=== PATIENT | female | born 1965 | race Caucasian/White ===

== ENCOUNTER 2025-01-08 07:30 | Day surgery (SDC) | payer OTHER ==
[~2025-01-08] VITALS: Ht 167.6 cm; Wt 89.4 kg
[~2025-01-08 07:30] MED LIST: BIOTIN10 MG PO; CINNAMON500 MG PO; ESTRADIOL0.5 MG PO; FUROSEMIDE20 MG PO; IBLOOD GLUCOSE TEST STRIP 1 EA TEST VI PRN; LACTATED RINGER'S 1,000 ML IV SCH; LEVOTHYROXINE75 MCG PO; LIDOCAINE HCL 1% 5 ML SDV INJ ONE; METOPROLOL SUCC25 MG PO; MIDAZOLAM HCL 5 MG/5 ML VIAL IV PRN; POTASSIUM99 M1 PO; PROVENTIL HFA6.7 GM INH; SINGULAIR10 MG PO; TRAZODONE HCL50 MG PO; ZYRTEC10 MG PO; fentaNYL citrate 100 MCG/2 ML VIAL IV PRN
[2025-01-08 07:49] VITALS: BP 138/78
[2025-01-08] MEDS ORDERED: LUTEIN20 M1 PO (07:50)
[2025-01-08] MEDS ORDERED: MAGNESIUM400 MG PO (07:50)
[2025-01-08] MEDS ORDERED: PROBIOTIC1 EAC2 PO (07:51)
[2025-01-08] MEDS ORDERED: VITAMIN B12500 MCG PO (07:51)
[2025-01-08] MEDS ORDERED: HAIR, SKIN AND1 EAC1 PO (07:52)
[2025-01-08] MEDS ORDERED: PHENTERMINE H37.5 M1 PO (07:52)
[2025-01-08] MEDS ORDERED: MIDAZOLAM HCL 5 MG/5 ML VIAL ONE (08:46)
[2025-01-08] MEDS ORDERED: fentaNYL citrate 100 MCG/2 ML VIAL ONE (08:47)
--- NOTE | 2025-01-08 09:52 | NUR ---
01/08/25 Felisa52 Anne Marie Albert 0949: PT ARRIVES TO PACU, AWAKE BUT DROWSY. REPORT RECEIVED FROM DRYING AND WINDING SUPERVISOR. LAURA 0957: DR. HARO IS AT THE BEDSIDE TO SPEAK WITH PT. HE RECOMMENDS REPEAT COLONOSCOPY IN 7-10 YEARS.
[2025-01-08 10:16] VITALS: BP 147/89
--- NOTE | 2025-01-09 11:41 | OR ---
[facility] [address], [place] [address] Signed DATE OF OPERATION: 01/08/2025 SURGEON: Rosaura Munoz MD PREOPERATIVE DIAGNOSES: 1. Colon screening. 2. Family history of colon cancer in grandfather. POSTOPERATIVE DIAGNOSIS: Normal colon to cecum without visualization behind the ileocecal valve. PROCEDURE: Total colonoscopy to cecum. ANESTHESIA: Intravenous sedation fentanyl 150 mcg and Versed 6 mg. 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 She underwent colonoscopy in 2014 with recommendation to repeat in 10 years. She does have family history of colon cancer in a maternal grandfather in his 80s. She has no symptoms of bleeding, diarrhea or constipation. She does have history of "hemorrhoids." She is admitted at this time to undergo screening colonoscopy, understands the risk of bleeding, infection, perforation. FINDINGS: The prep was good. Complete colonoscopy was undertaken with visualization of the cecum, but full intubation of the cecum was not accomplished thus visualization behind the ileocecal valve was not assured. The remaining colon was entirely normal, however. She did have external hemorrhoidal disease. DESCRIPTION OF PROCEDURE: The patient was brought to the endoscopy suite and placed in lateral decubitus position, given intravenous sedation to the point of slurred speech and nystagmus. Digital rectal examination was normal other than external hemorrhoidal changes. An Olympus video colonoscope was passed in the rectum and manipulated throughout the colon ultimately intubating the right colon. Various maneuvers were undertaken to fully intubate the colon but although visualized was not fully intubated. Area behind the ileocecal valve was thus not seen fully. A biopsy forceps was used to elevate mucosa but this was unsuccessful. The patient was placed in the supine position. Abdominal wall Electronically Signed By: ROSAURA MUNOZ MD 01/09/25 1141 PATIENT NAME: MAINOR LANDERS OPERATIVE REPORT DATE OF : 61 REPORT #: [id number] PHYSICIAN: ROSAURA MUNOZ MD PCP: FAVIAN EID DO REPORT IS CONFIDENTIAL AND NOT TO BE RELEASED WITHOUT AUTHORIZATION [facility] [address], [place] [address] Signed stabilization undertaken, but all efforts to truly visualize the ileocecal valve were not accomplished. Further efforts were abandoned due to hazard of injury at that point. The scope was then withdrawn. Careful examination throughout showed no sign of abnormality, specifically no polyps, diverticular formation, colitis, or cancer. External hemorrhoids were identified as noted. Scope was removed. The patient was taken to the recovery room in good condition. CONCLUDING DIAGNOSIS: Essentially normal colon. External hemorrhoids noted. Recommend repeat colonoscopy in 7 to 10 years based on family history of paternal grandfather in 80s who had colon cancer. Colonoscopy can certainly be undertaken sooner if symptoms should warrant. She will return to the ongoing care of Dr. Eid otherwise. MD RASHIDA Dickey/ZCA /[id number] cc: Favian Eid DO Copies: FAVIAN EID DO ~ Electronically Signed By: ROSAURA MUNOZ MD 01/09/25 1141 PATIENT NAME: MAINOR LANDERS JENNIFER OPERATIVE REPORT DATE OF : 61 REPORT #: [id number] PHYSICIAN: ROSAURA MUNOZ MD PCP: FAVIAN EID DO REPORT IS CONFIDENTIAL AND NOT TO BE RELEASED WITHOUT AUTHORIZATION
== END 2025-01-08 10:27 | disposition home or self-care (01) ==
LOC: DS 07:30
PROVIDERS: ATTEND Surgery
PROC: 0DJD8ZZ Inspection of Lower Intestinal Tract, Via Natural or Artificial Opening Endoscopic (ICD-10-PCS; principal; 2025-01-08 08:15)
DX: Z12.11 Encounter for screening for malignant neoplasm of colon (principal); K64.4 Residual hemorrhoidal skin tags; E03.8 Other specified hypothyroidism; Z80.0 Family history of malignant neoplasm of digestive organs; Z90.710 Acquired absence of both cervix and uterus; Z98.890 Other specified postprocedural states; Z90.49 Acquired absence of other specified parts of digestive tract; Z87.891 Personal history of nicotine dependence; Z88.1 Allergy status to other antibiotic agents; Z88.8 Allergy status to other drugs, medicaments and biological substances; Z79.899 Other long term (current) drug therapy; Z79.890 Hormone replacement therapy
CPT/HCPCS: 99153; G0500; J2250; J3010; J7121